=== PATIENT | female | born 1965 | race Caucasian/White ===

== ENCOUNTER 2018-12-12 00:57 | Outpatient (CLI) | payer OTHER, SELFPAY ==
[2018-12-12 17:19] LABS: Mean Corpuscular HGB CONC 32.3 g/dL (32.0-36.0); Mean Corpuscular Hemoglobin 32.8 pg (27.0-31.0); Mean Platelet Volume 7.6 fL (7.4-10.4); Platelet Count 257 thou/uL (130-400); RBC Distribution Width 13.6 % (11.5-14.5); Red Blood Cell (RBC) Count 3.96 mill/uL (4.20-5.40); White Blood Cell (WBC) Count 6.9 thou/uL (4.8-10.8)
[2018-12-12 17:32] LABS: Anion Gap 12 mmol/L (10-20); BUN (Urea Nitrogen) 16 mg/dL (9.8-20.1); Calc. Creatinine Clearance 0 mL/min (70-130); Carbon Dioxide 32 mmol/L (22-29); Chloride 102 mmol/L (98-107); Estimated GFR-MDRD 46; Glucose 111 mg/dL (70-105); Potassium 4.5 mmol/L (3.5-5.1); Sodium 141 mmol/L (136-145)
--- NOTE | 2018-12-13 18:13 | EKG ---
Test Reason : Blood Pressure : / mmHG Vent. Rate : 067 BPM Atrial Rate : 067 BPM P-R Int : 176 ms QRS Dur : 086 ms QT Int : 414 ms P-R-T Axes : 040 033 -32 degrees QTc Int : 437 ms Normal sinus rhythm Nonspecific T wave abnormality Poor anterior R wave progression Low voltage QRS Abnormal ECG No previous ECGs available Confirmed by DR. Dipti BOATENG ([id number]) on 12/13/2018 6:13:20 PM Referred By: WARD Confirmed By:DR. Dipti BOATENG
== END 2018-12-12 00:58 | disposition home or self-care (01) ==
LOC: LABBT 00:57
PROVIDERS: ATTEND Orthopaedic Surgery
DX: Z01.818 Encounter for other preprocedural examination (principal); S86.812A Strain of other muscle(s) and tendon(s) at lower leg level, left leg, initial encounter; S83.412A Sprain of medial collateral ligament of left knee, initial encounter
CPT/HCPCS: 80048; 85027; 93005; 93010

== ENCOUNTER 2018-12-13 07:29 | Day surgery (SDC) | payer OTHER ==
[2018-12-12 16:08] VITALS: BMI 30.8
[2018-12-13] MEDS ORDERED: Midazolam HCl 2 mg/2 ml Vial ONE ×2 (08:38→08:46)
[2018-12-13] MEDS ORDERED: Fentanyl 100 MCG/2 ML VIAL ONE ×2 (08:38→11:16)
[2018-12-13] MEDS ORDERED: Clindamycin/D5W 900 mg/50 ml Premix Bag ONE (08:46)
[2018-12-13] MEDS ORDERED: Bupivacaine HCl 0.5%/Epinephrine 1:200,000/PF 30 ml Vial ONE (09:01)
[2018-12-13] MEDS ORDERED: HYDROcodone/Acetaminophen 5/325 mg Tablet ONE (12:23)
[2018-12-13] MEDS ORDERED: Ondansetron PF 4 MG/2 ML Vial ONE (13:31)
[2018-12-13] MEDS ORDERED: Lidocaine 1% PF 5 ML VIAL ONE (13:31)
[2018-12-13] MEDS ORDERED: PROPOFOL 200 MG/20 ML VIAL ONE (13:31)
--- NOTE | 2018-12-13 17:44 | OP ---
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 PROCEDURE PERFORMED: Arthroscopy of the left knee with lateral retinacular release and shaving of the patella and open medial retinacular tightening and repair. ANESTHESIA: General. DESCRIPTION OF PROCEDURE: The patient was given preoperative IV antibiotics, taken to the operating room, placed in supine position. Satisfactory general anesthesia was performed. The left lower extremity was placed in a leg robin and sterilely prepped and draped in usual fashion. After exsanguination, tourniquet was raised to 300 mmHg. The knee was scoped through the usual inferomedial and inferolateral portals. Upon entering the suprapatellar pouch, the patient had mild synovitis. Partial synovectomy was performed. There was some chondromalacia with fraying of the articular cartilage under the patella and this was smoothed down with a shaver. The rest of the knee was evaluated. Intercondylar notch revealed an intact anterior cruciate ligament. Medial and lateral compartments had normal articular cartilage and both the medial and lateral menisci were completely intact. An ArthroWand was then used to perform a lateral retinacular release. An incision was then made over the medial retinaculum approximately 2 inches in length and the medial retinaculum was exposed up to the quadriceps tendon and down to just medial of the patellar tendon. This was opened and then the medial retinaculum was tightened using #2 Vicryl in interrupted [id number] sutures. Additional #2 Vicryl was used to augment the repair and tightening of the medial retinaculum. The patella rode well in the femoral groove. The wound was then copiously irrigated with antibiotic solution and the wound was then closed using 2-0 Vicryl for the subcutaneous tissue, and the skin was closed with 3-0 Rapide. Portals were closed with 3-0 Rapide. 30 mL of 0.5% Marcaine with epinephrine was then injected in the knee and around the lateral retinacular release and the medial retinacular tightening. Sterile dressing was applied. The tourniquet was released. Leg was taken out of the leg robin. The patient was awakened, extubated, and transferred to recovery room in stable condition. ESTIMATED BLOOD LOSS: None. COMPLICATIONS: None. TOURNIQUET TIME: 45 minutes. DISCHARGE MEDICATION: [place] 10 one every 6 hours as needed for pain, #50. FOLLOWUP: Follow up in my office in one week. The patient may weightbear as tolerated on the left lower extremity, but needs to use her walker to avoid falling. Job ID: [id number]
== END 2018-12-13 14:10 | disposition home or self-care (01) ==
LOC: SDC 07:29
PROVIDERS: ATTEND Orthopaedic Surgery
PROC: 0MNP4ZZ Release Left Knee Bursa and Ligament, Percutaneous Endoscopic Approach (ICD-10-PCS; principal; 2018-12-13)
PROC: 0LQR0ZZ Repair Left Knee Tendon, Open Approach (ICD-10-PCS; principal; 2018-12-13)
DX: S86.812A Strain of other muscle(s) and tendon(s) at lower leg level, left leg, initial encounter (principal); M22.42 Chondromalacia patellae, left knee; M19.90 Unspecified osteoarthritis, unspecified site; Z79.1 Long term (current) use of non-steroidal anti-inflammatories (NSAID); Z79.899 Other long term (current) drug therapy; Z88.0 Allergy status to penicillin; W01.0XXA Fall on same level from slipping, tripping and stumbling without subsequent striking against object, initial encounter; Y99.0 Civilian activity done for income or pay
CPT/HCPCS: J0670; J2001; J2250; J2405; J2704; J3010; J3490

== ENCOUNTER 2019-02-26 18:30 | Inpatient (IN) | payer SELFPAY ==
[~2019-02-26 18:30] MED LIST: ISOVUE-370 76%-LOCM 1 ML ONE
[2019-02-26 19:15] LABS: #Eosinphils 0.3 thou/uL (0.0-0.7); #Lymphocytes 1.9 thou/uL (1.20-3.40); #Monocytes 0.4 thou/uL (0.11-0.59); #Neutrophils 4.6 thou/uL (1.40-6.50); %Basophils 0.6 % (0.0-1.0); %Eosinophils 3.5 % (0.0-10.0); %Lymphocytes 25.7 % (21.0-51.0); %Monocytes 6.1 % (0.0-10.0); %Neutrophils 64.2 % (42.0-75.0); Hemoglobin 11.5 g/dL (12.0-16.0); Mean Corpuscular HGB CONC 33.7 g/dL (32.0-36.0); Mean Corpuscular Hemoglobin 34.5 pg (27.0-31.0); Mean Platelet Volume 7.2 fL (7.4-10.4); Platelet Count 269 thou/uL (130-400); RBC Distribution Width 13.7 % (11.5-14.5); Red Blood Cell (RBC) Count 3.33 mill/uL (4.20-5.40); White Blood Cell (WBC) Count 7.2 thou/uL (4.8-10.8)
--- NOTE | 2019-02-26 19:34 | RAD ---
AP view chest. HISTORY: Chest pain AP view chest obtained. Cardiomegaly noted. No evidence of active intrathoracic disease seen. No evid ence of effusions, pneumonia or pneumothorax seen IMPRESSION: Cardiomegaly.
[2019-02-26 19:41] LABS: ALT (SGPT) 16 U/L (8-55); AST (SGOT) 31 U/L (5-34); Albumin 4.2 g/dL (3.5-5.0); Alkaline Phosphatase 56 U/L (40-150); Anion Gap 14 mmol/L (10-20); BUN (Urea Nitrogen) 17 mg/dL (9.8-20.1); Bilirubin, Total 0.2 mg/dL (0.2-1.2); CK (CPK) 1373 U/L (29-168); Calc. Creatinine Clearance 0 mL/min (70-130); Calcium 9.8 mg/dL (7.8-10.44); Carbon Dioxide 30 mmol/L (22-29); Chloride 97 mmol/L (98-107); Estimated GFR-MDRD 52; Globulin 3.6 g/dL (2.4-3.5); Glucose 93 mg/dL (70-105); Lipase 16 U/L (8-78); Potassium 4.4 mmol/L (3.5-5.1); Protein, Total 7.8 g/dL (6.0-8.3); Sodium 137 mmol/L (136-145)
--- NOTE | 2019-02-26 21:14 | RAD ---
4 VIEWS LEFT KNEE: Date: 02/26/19 COMPARISON: 08/30/08. HISTORY: Left knee pain. FINDINGS: Four views of the left knee show no evidence of acute fracture or dislocation. There is a small knee effusion. Moderate prepatellar soft tissue swelling is seen. Mild tricompartmental degenerative loredo es are seen. IMPRESSION: Mild left knee osteoarthritis without acute osseous abnormality. POS: C
--- NOTE | 2019-02-26 22:19 | CT ---
Contrast-enhanced images abdomen pelvis. HISTORY: Chest pain. Contrast-enhanced CT images of the abdomen pelvis obtained. IV contrast was given. Bibasilar areas of lung atelectasis are present. The patient has a moderate size pericardial effusion . The liver and spleen are unremarkable. Gallbladder unremarkable. The patient has a large amount of stool in the colon. No evidence of free intraperitoneal air seen. No evidence of small bowel obstruction seen. There is a 2.5 x 3.3 x 3.8 cm left periaortic iliac soft tissue mass possibly representing a left alhaji ac lymph node. This lesion is definitely abnormal. Malignancy cannot be excluded. IMPRESSION: Large left iliac lesion concerning for possible malignant lymph node.
[2019-02-26] MEDS ORDERED: Acetaminophen 325 MG TAB ONE (22:35)
[2019-02-26] MEDS ORDERED: HYDROcodone/Acetaminophen 5/325 mg Tablet ONE (22:35)
[2019-02-27 00:02] LABS: Bilirubin Negative (Negative); Blood, Urine Negative (Negative); Clarity CLEAR (Clear); Glucose, Urine (Dipstick) Negative (Negative); Leukocyte Negative (Negative); Nitrite Negative (Negative); Protein, Urine (Dipstick) Negative (Neg-Trace); Specific Gravity, Urine 1.037 (1.002-1.036); Urobilinogen 0.2 mg/dL (0.2-1.0)
[2019-02-27] MEDS ORDERED: Ondansetron PF 4 MG/2 ML Vial IVP PRN (00:06)
[2019-02-27] MEDS ORDERED: Ondansetron ODT 4 MG TAB PO PRN (00:06)
[2019-02-27] MEDS ORDERED: Levothyroxine 150 MCG TAB PO SCH (00:15)
[2019-02-27] MEDS ORDERED: Levothyroxine Sodium 100 MCG TAB PO SCH (00:15)
[2019-02-27] MEDS ORDERED: Furosemide 40 MG/4 ML VIAL SLOW IVP SCH (00:37)
[2019-02-27] MEDS ORDERED: HYDROcodone/Acetaminophen 5/325 mg Tablet PO PRN (01:02)
[2019-02-27] MEDS: HYDROcodone/Acetaminophen 5/325 mg Tablet PO PRN ×2 (01:24→19:48)
--- NOTE | 2019-02-27 01:26 | HP ---
PRIMARY CARE DOCTOR: None reported. CODE STATUS: Full code. TIME OF EVALUATION: 12:00. CHIEF COMPLAINT: Shortness of breath and chest pain. HISTORY OF PRESENT ILLNESS: This is a 53-year-old female patient, morbidly obese, with no significant past medical history, came to the hospital after having shortness of breath that was when she was lying flat associated with chest pain, right in the middle of the chest radiating to the back with no clear triggers, no alleviating factors. The chest pain was reported as oppressive and was 5/10. The shortness of breath started one day ago and the chest pain started a few hours ago. REVIEW OF SYSTEMS: CONSTITUTIONAL: No fever, chills, or generalized weakness. RESPIRATORY: The patient has shortness of breath when laying flat. No cough. CARDIOVASCULAR: The patient has chest pain. No palpitation. GASTROINTESTINAL: No nausea. No vomiting, diarrhea, or abdominal pain. CONSULTING TECHNICAL DIRECTOR: No dizziness, headache, or feeling lightheaded. GENITOURINARY: No burning on urination. EXTREMITIES: Bilateral leg swelling. All other systems were reviewed and negative except for the findings mentioned above. PAST MEDICAL HISTORY: As mentioned in HPI. PAST SURGICAL HISTORY: Left knee surgery. PSYCHIATRIC HISTORY: No previous surgeries. SOCIAL HISTORY: The patient used to smoke. No drugs. No alcohol. FAMILY HISTORY: Reviewed and noncontributory for current presentation. KNOWN ALLERGIES: Penicillin. REPORTED MEDICATIONS: None. PHYSICAL EXAMINATION: VITAL SIGNS: On presentation, blood pressure 124/85 with heart rate 63, respiratory rate was 16, temperature 98.5, pain 5/10, oxygen saturation was 95% on room air. GENERAL APPEARANCE: The patient is alert, oriented, not in acute distress. HEENT: The patient seems to have bilateral eyes swollen. Eyes, normal conjunctivae. Moist oral mucosa. Anicteric. Periorbital swelling. NECK: No JVD. RESPIRATORY: Bilateral air entry. No rales or wheezes. Symmetric expansion. CARDIOVASCULAR: Normal rate, regular rhythm. No murmurs. No gallop. No edema. ABDOMEN: Soft. Normal bowel sounds. MUSCULOSKELETAL: Baseline range of motion and strength. No tenderness. SKIN: Warm, intact. No pallor. No rash. No redness. Peripheral pulses are present. Capillary refill seems to be intact. NEURO: No evidence of any new focal weakness, Cranial nerves seem to be intact. PSYCH: The patient is in good mood. No anxiety. Optimal judgment. DIAGNOSTIC DATA: EKG was reviewed. The patient has ventricular rate 64, MI 158, QRS 84, QT corrected 408. Normal sinus rhythm. Chest x-ray was reviewed. The patient has cardiomegaly. Knee x-ray was reviewed. The patient has mild left knee osteoarthritis without acute osseous abnormalities. Abdomen and pelvis CT was reviewed. The patient has a large left iliac lesion concerning for possible malignancy and lymph nodes. Moderate-sized pericardial effusion. LABORATORY DATA: Labs were reviewed. The patient has a white count of 7.2, hemoglobin 9.5, MCV 103, and platelet count 269. D-dimer less than 0.27. ESR negative. Chemistries: Sodium 137, potassium 4.4, chloride 97, carbon dioxide 30, anion gap 14, BUN 17, creatinine 1.1, GFR 52, glucose 93, calcium 9.8, total bilirubin 0.2. LFTs were negative. CK 1373. TSH 114, free T4 less than 0.4. ASSESSMENT AND PLAN: The patient will be placed in the hospital with the following medical problems: 1. Shortness of breath, unclear etiology. EKG did not show significant infiltrates or pulmonary edema, the patient does have cardiomegaly, we will do an echo since on the CAT scan, the patient has moderate-sized pericardial effusion. We will review echo with Cardiology for any further treatment. 2. Severe hypothyroidism. The patient presented with very elevated TSH in a rate of 114, we will start the patient on levothyroxine, we will monitor repeat TSH and T4 in the next coming days. It seems that the patient was not aware that she has hypothyroidism. 3. Chest pain. The patient has no history of coronary artery disease. We will monitor troponins overnight. We will do the echo. We will monitor on tele. We will treat accordingly. Plan as per Cardiology recommendations. 4. Mildly elevated CK secondary to severe hypothyroidism. We will monitor and we will treat accordingly. 5. Macrocytic anemia with MCV of 103. This is likely secondary to severe hypothyroidism. We will treat underlying condition. 6. Deep venous thrombosis prophylaxis. Job ID: [id number]
[2019-02-27 01:49] VITALS: BMI 33.6
[2019-02-27 01:51] LABS: #Eosinphils 0.3 thou/uL (0.0-0.7); #Lymphocytes 1.7 thou/uL (1.20-3.40); #Monocytes 0.4 thou/uL (0.11-0.59); #Neutrophils 4.4 thou/uL (1.40-6.50); %Basophils 0.5 % (0.0-1.0); %Eosinophils 4.2 % (0.0-10.0); %Lymphocytes 25.5 % (21.0-51.0); %Monocytes 5.8 % (0.0-10.0); Mean Corpuscular HGB CONC 33.6 g/dL (32.0-36.0); Mean Corpuscular Hemoglobin 34.5 pg (27.0-31.0); Mean Platelet Volume 7.5 fL (7.4-10.4); Platelet Count 270 thou/uL (130-400); RBC Distribution Width 13.7 % (11.5-14.5); Red Blood Cell (RBC) Count 3.48 mill/uL (4.20-5.40); White Blood Cell (WBC) Count 6.8 thou/uL (4.8-10.8)
[2019-02-27 02:25] LABS: Anion Gap 14 mmol/L (10-20); BUN (Urea Nitrogen) 17 mg/dL (9.8-20.1); CK (CPK) 1311 U/L (29-168); Calc. Creatinine Clearance 92 mL/min (70-130); Calcium 9.9 mg/dL (7.8-10.44); Carbon Dioxide 28 mmol/L (22-29); Cardiac Risk 7.9 (Less than 4.5); Chloride 98 mmol/L (98-107); Cholesterol 357 mg/dl (< 200 Desired); Estimated GFR-MDRD 53; Glucose 101 mg/dL (70-105); HDL Cholesterol 45 mg/dL (>60 Neg Risk); Potassium 4.8 mmol/L (3.5-5.1); Sodium 135 mmol/L (136-145)
[2019-02-27 02:38] LABS: LDL Cholesterol, Calculated 221 mg/dL; Triglycerides 449 mg/dL (Less than 150)
[2019-02-27 02:53] LABS: Troponin I Less than 0.010 ng/mL (< 0.028)
[2019-02-27] MEDS: Furosemide 40 MG/4 ML VIAL SLOW IVP SCH ×2 (05:27→14:13)
[2019-02-27] MEDS: Enoxaparin Sodium 40 MG/0.4 ML SYRINGE SC SCH (08:15)
--- NOTE | 2019-02-27 14:54 | PDOC.EVN ---
Event Note - Event Note Event Note: Patient seen and examined. Still with some SOB. No current chest pain. Repleting thyroid. ECHO pending. Cardiology consulted. No current hemodynamic compromise. If pericardial effusion significant will need to talk to CT surgery.
[2019-02-28] MEDS: Furosemide 40 MG/4 ML VIAL SLOW IVP SCH ×2 (05:31→16:27)
[2019-02-28] MEDS: Levothyroxine Sodium 100 MCG TAB PO SCH (05:31)
[2019-02-28] MEDS ORDERED: Levothyroxine 150 MCG TAB PO SCH (06:00)
[2019-02-28] MEDS ORDERED: Sodium Chloride 0.9% 10 ML ONE ×2 (08:38→16:23)
--- NOTE | 2019-02-28 08:41 | PDOC.PN ---
- Subjective Encounter Start Date: 02/28/19 Encounter Start Time: 12:00 Subjective: Patient reports fatigue. No more chest pain. No SOB. - Objective Resuscitation Status - Order Detail: 02/27/19 00:06 Resuscitation Status Routine Resuscitation Status: FULL: Full Resuscitation MAR Reviewed: Yes Vital Signs & Weight: Vital Signs (12 hours) Temp Pulse Resp BP Pulse Ox 02/28/19 08:00 97.6 F 63 16 116/67 95 02/28/19 03:23 97.5 F L 93 16 123/70 92 L 02/27/19 23:55 72 120/75 Weight Weight 213 lb 8 oz I&O: 02/27/19 02/28/19 03/01/19 06:59 06:59 06:59 Intake Total 60 960 Output Total 1700 600 Balance -1640 360 Result Diagrams: 02/27/19 01:42 02/27/19 01:42 Phys Exam - Physical Examination Constitutional: NAD fatigued appearing HEENT: moist MMs Respiratory: no wheezing, no rales, no rhonchi Cardiovascular: RRR, no significant murmur Gastrointestinal: soft, positive bowel sounds Neurological: non-focal, moves all 4 limbs Psychiatric: normal affect, A&O x 3 Dx/Plan (1) Severe hypothyroidism Code(s): E03.8 - OTHER SPECIFIED HYPOTHYROIDISM Status: Acute Comment: with SOB, fatigue, and possible cardiac side effects, replacing, if patient has evidence of CAD may need to back off on replacement and go slower (2) Chest pain Code(s): R07.9 - CHEST PAIN, UNSPECIFIED Status: Resolved Comment: Cardiology consulted, troponins negative (3) Pericardial effusion Code(s): I31.3 - PERICARDIAL EFFUSION (NONINFLAMMATORY) Status: Acute Comment: not severe, Cardiology consulted (4) Macrocytic anemia Code(s): D53.9 - NUTRITIONAL ANEMIA, UNSPECIFIED Status: Acute Comment: likely due to hypothyroidism, mild (5) Mixed hyperlipidemia Code(s): E78.2 - MIXED HYPERLIPIDEMIA Status: Acute Comment: due to hypothyroidism - Plan cont current plan of care, out of bed/ambulate Awaiting cardiology recs. * . - Discharge Day Encounter end time: 12:10
[2019-02-28] MEDS: Enoxaparin Sodium 40 MG/0.4 ML SYRINGE SC SCH (09:20)
[2019-02-28] MEDS ORDERED: PROPOFOL 200 MG/20 ML VIAL ONE (11:43)
[2019-02-28] MEDS ORDERED: Lidocaine 1% PF 5 ML VIAL ONE ×2 (11:43→15:08)
[2019-02-28] MEDS ORDERED: Colchicine 0.6 MG TAB PO SCH (12:45)
--- NOTE | 2019-02-28 14:05 | CON ---
DATE OF CONSULTATION: HISTORY: Bree Ignacio is a 53-year-old white female, who is admitted with shortness of breath and chest pain. Over the last day, she has had increased shortness of breath as well as a chest pressure. Chest pressure was worse when she was supine and better if she was sitting up. Discomfort has lasted over 24 hours. She underwent abdominal and pelvis CT, and this revealed a large left iliac lesion worrisome for malignant lymph node. This is 2.5 x 3.3 x 3.8 cm. Also, there was evidence of moderate size pericardial effusion. She has had weight gain and alopecia for at least 10 years. PAST MEDICAL HISTORY: She has no history of hypertension or diabetes. PAST SURGICAL HISTORY: Left knee surgery. MEDICATIONS: None. ALLERGIES: PENICILLIN. PHYSICAL EXAMINATION: VITAL SIGNS: Blood pressure of 113/73, pulse of 60. HEENT: PERRL. She has ptosis present, left greater than right. CHEST: Clear. CARDIAC: S1 and S2 normal without any S3, S4, murmurs, or rubs. ABDOMEN: Obese. Normal bowel sounds. EXTREMITIES: Revealed trace pretibial edema. NEUROLOGIC: Grossly intact. IMAGING STUDIES: EKG reveals normal sinus rhythm with nonspecific T-wave change , poor R-wave progression. During the night, she does have some episodes of bradycardia with heart rates in the 30s with sinus rhythm. LABORATORY DATA: Hemoglobin 12.0, hematocrit 35.7, white count 6800, platelets 270,000. D-dimer less than 0.27. Sodium 135, potassium 4.8, chloride 98, carbon dioxide 28, BUN 17, creatinine 1.07. CK 1311. I do not see an MB fraction. Troponin I is normal x2. Cholesterol of 357, triglycerides 449, HDL 45, LDL 221 , free T4 less than 0.40, TSH 114.8207. IMPRESSION: 1. Pericardial effusion. By my exam, she has a paradox of four. I doubt that she has cardiac tamponade at this time. Her pericardial effusion could certainly be due to a viral etiology, but also maybe related to her profound hypothyroidism. 2. Hypothyroidism. 3. Obesity. 4. Recent left knee surgery. 5. Presumed rhabdomyolysis. 6. Severe hypercholesterolemia probably related to profound hypothyroidism. PLAN: MB will be obtained to better define her elevated CK. The patient will be started on colchicine 0.6 mg b.i.d. Her pericardial effusion will need to be watched closely. Hypothyroidism is also present, and her thyroid need to be slowly replaced. Job ID: [id number] [facility]
[2019-02-28] MEDS ORDERED: PROPOFOL 20 ML ONE (15:08)
[2019-02-28] MEDS: HYDROcodone/Acetaminophen 5/325 mg Tablet PO PRN (19:41)
[2019-02-28] MEDS: Colchicine 0.6 MG TAB PO SCH (19:41)
[2019-03-01] MEDS: Furosemide 40 MG/4 ML VIAL SLOW IVP SCH ×2 (05:08→14:57)
[2019-03-01] MEDS: Levothyroxine Sodium 100 MCG TAB PO SCH (05:08)
[2019-03-01] MEDS: HYDROcodone/Acetaminophen 5/325 mg Tablet PO PRN ×2 (06:13→19:40)
--- NOTE | 2019-03-01 08:15 | OP ---
DATE OF PROCEDURE: 02/28/2019 PROCEDURE PERFORMED: Transesophageal echocardiography. INDICATION: Assess RV apex. DESCRIPTION OF PROCEDURE: The patient was consented for the procedure. I discussed the procedure in full detail with Steve Ignacio. Risks included, but not limited to the following: Damage to teeth, mouth, back of throat, damage to esophagus requiring emergency surgery as well as reaction to medication. All questions were answered. Given the above, the patient agreed to proceed with above procedure. FINDINGS: LV apex is very difficult to assess. I could not truly visualize the apex due to the distance from the probe in the esophagus. There was suggestion of a small apical aneurysm, but further delineation could not be assessed. IMPRESSION: 1. Limited visualization of the RV apex. 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 Job ID: [id number]
[2019-03-01] MEDS ORDERED: Sodium Chloride 0.9% 10 ML ONE ×2 (08:38→14:56)
--- NOTE | 2019-03-01 08:49 | PDOC.PN ---
- Subjective Encounter Start Date: 03/01/19 Encounter Start Time: 11:00 Subjective: Patient fatigued, no other complaints. No chest pain. No SOB. - Objective Resuscitation Status - Order Detail: 02/27/19 00:06 Resuscitation Status Routine Resuscitation Status: FULL: Full Resuscitation MAR Reviewed: Yes Vital Signs & Weight: Vital Signs (12 hours) Temp Pulse Resp BP BP Pulse Ox 03/01/19 07:30 93 L 03/01/19 07:29 97.9 F 64 16 121/71 98 03/01/19 06:11 129/83 94 L 03/01/19 03:26 97.6 F 78 19 117/57 L 94 L Weight Weight 211 lb 12.8 oz I&O: 02/28/19 03/01/19 03/02/19 06:59 06:59 06:59 Intake Total 960 1225 Output Total 600 2600 Balance 360 -1375 Result Diagrams: 02/27/19 01:42 03/03/19 05:41 Phys Exam - Physical Examination Constitutional: NAD HEENT: moist MMs Respiratory: no wheezing, no rales, no rhonchi Cardiovascular: RRR Gastrointestinal: soft, positive bowel sounds Neurological: non-focal Psychiatric: normal affect, A&O x 3 Dx/Plan (1) Severe hypothyroidism Code(s): E03.8 - OTHER SPECIFIED HYPOTHYROIDISM Status: Acute (2) Chest pain Code(s): R07.9 - CHEST PAIN, UNSPECIFIED Status: Resolved Comment: Cardiology consulted, troponins negative (3) Pericardial effusion Code(s): I31.3 - PERICARDIAL EFFUSION (NONINFLAMMATORY) Status: Acute Comment: mild effusion (4) Macrocytic anemia Code(s): D53.9 - NUTRITIONAL ANEMIA, UNSPECIFIED Status: Acute Comment: likely due to hypothyroidism, mild (5) Mixed hyperlipidemia Code(s): E78.2 - MIXED HYPERLIPIDEMIA Status: Acute Comment: due to hypothyroidism - Plan cont current plan of care, out of bed/ambulate home today if ok with cardiology * . - Discharge Day Encounter end time: 11:15
[2019-03-01] MEDS: Colchicine 0.6 MG TAB PO SCH ×2 (09:01→19:40)
[2019-03-01] MEDS: Enoxaparin Sodium 40 MG/0.4 ML SYRINGE SC SCH (09:02)
[2019-03-01 10:57] LABS: CKMB 9.3 ng/mL (0-6.6)
[2019-03-01] MEDS: Acetaminophen 325 MG TAB PO PRN (12:11)
[2019-03-01 12:28] LABS: BUN (Urea Nitrogen) 20 mg/dL (9.8-20.1); Calc. Creatinine Clearance 87 mL/min (70-130); Calcium 9.7 mg/dL (7.8-10.44); Estimated GFR-MDRD 51; Glucose 87 mg/dL (70-105)
[2019-03-01 12:37] LABS: Anion Gap 15 mmol/L (10-20); Carbon Dioxide 35 mmol/L (22-29); Chloride 91 mmol/L (98-107); Potassium 3.9 mmol/L (3.5-5.1); Sodium 137 mmol/L (136-145)
[2019-03-02] MEDS ORDERED: Levothyroxine Sodium 50 MCG TAB PO SCH (06:00)
[2019-03-02 06:41] LABS: Anion Gap 12 mmol/L (10-20); BUN (Urea Nitrogen) 23 mg/dL (9.8-20.1); Calc. Creatinine Clearance 106 mL/min (70-130); Calcium 9.8 mg/dL (7.8-10.44); Carbon Dioxide 35 mmol/L (22-29); Chloride 92 mmol/L (98-107); Estimated GFR-MDRD 64; Glucose 95 mg/dL (70-105); Potassium 4.1 mmol/L (3.5-5.1); Sodium 135 mmol/L (136-145)
--- NOTE | 2019-03-02 08:29 | ULT ---
THYROID ULTRASOUND: CLINICAL HISTORY: Hypothyroidism COMPARISON:None FINDINGS: Right thyroid lobe: Measures 4.4 x 1.5 x 2.4 cm. Left thyroid lobe: Measures 3.3 x 1.3 x 1.6 cm. Isthmus: Measures 2 mm. Nodules: No discrete nodules. There is diffuse heterogeneous echotexture of the thyroid gland. IMPRESSION: Diffuse thyroid gland heterogeneity without discrete nodule. Correlate clinically.
--- NOTE | 2019-03-02 09:36 | ULT ---
ULTRASOUND PELVIC ULTRASOUND TRANSVAGINAL DOPPLER DUPLEX: DATE: 03/02/2019. HISTORY: A 53-year-old female with mass abutting the left distal abdominal aortic bifurcation and left common iliac artery found on CT of 02/26/2019. TECHNIQUE: Transabdominal transducer used to evaluate intrapelvic contents using the urinary bladder as an acous tic window. Endovaginal transducer used to visualize intrapelvic contents in greater detail. Color fl ow Doppler and Pulsed Doppler spectral waveform analysis of ovaries. FINDINGS: Because of body habitus, there is very limited visualization of intrapelvic contents. Intrapelvic co ntents are not visible at all on the transvaginal images, and the mass in question would be too dista nt from the transvaginal transducer to reach. The urinary bladder appears unremarkable. The uterus is in the right side of the pelvic inlet. There are 2 small structures abutting the uterus which pro bably represent nonenlarged, normal-sized ovaries. The right ovary has flow demonstrated by Doppler. The left ovary is poorly visualized, and because of its location, Doppler signal is not attained. No large ovarian cyst or solid mass is visualized. The uterus measures approximately 7 x 4 x 5.5 cm. The endometrial stripe is not visible. The mass mentioned on the CT report is not visible on the u ltrasound. No free fluid. IMPRESSION: 1. The mass abutting the left side of the distal abdominal aortic bifurcation and abutting the later al edge of the left common iliac artery demonstrated on the CT, is not visible on this ultrasound. 2. No malignant neoplasm identified on this ultrasound. VERONICA Montemayor POS: STEPHIE
[2019-03-02] MEDS: Colchicine 0.6 MG TAB PO SCH ×2 (09:41→20:50)
[2019-03-02] MEDS: Enoxaparin Sodium 40 MG/0.4 ML SYRINGE SC SCH (11:43)
--- NOTE | 2019-03-02 12:14 | PDOC.PN ---
- Subjective Encounter Start Date: 03/02/19 Encounter Start Time: 09:00 Subjective: no c/o chest pain or sob -: is ambulating in room -: edema of her eyelids and lips are receding per patient - Objective Resuscitation Status - Order Detail: 02/27/19 00:06 Resuscitation Status Routine Resuscitation Status: FULL: Full Resuscitation MAR Reviewed: Yes Vital Signs & Weight: Vital Signs (12 hours) Temp Pulse Resp BP Pulse Ox 03/02/19 07:35 94 L 03/02/19 07:08 98.0 F 66 16 125/75 93 L 03/02/19 03:50 97.4 F L 64 14 119/78 92 L Weight Weight 209 lb 11.2 oz I&O: 03/01/19 03/02/19 03/03/19 06:59 06:59 06:59 Intake Total 1225 480 Output Total 2600 600 Balance -1375 -120 Result Diagrams: 02/27/19 01:42 03/02/19 06:05 Phys Exam - Physical Examination HEENT: PERRLA, moist MMs Neck: no JVD, supple Respiratory: no wheezing, no rales Cardiovascular: RRR, no significant murmur Gastrointestinal: soft, non-tender, positive bowel sounds Musculoskeletal: no edema, pulses present Neurological: non-focal, moves all 4 limbs Psychiatric: normal affect, A&O x 3 Dx/Plan (1) Severe hypothyroidism Code(s): E03.8 - OTHER SPECIFIED HYPOTHYROIDISM Status: Acute (2) Macrocytic anemia Code(s): D53.9 - NUTRITIONAL ANEMIA, UNSPECIFIED Status: Acute Comment: likely due to hypothyroidism, mild (3) Mixed hyperlipidemia Code(s): E78.2 - MIXED HYPERLIPIDEMIA Status: Acute Comment: due to hypothyroidism (4) Pericardial effusion Code(s): I31.3 - PERICARDIAL EFFUSION (NONINFLAMMATORY) Status: Acute Comment: mild effusion (5) left iliac lymph node enlargement Status: Acute - Plan increase synthroid to 100mcg daily, heart rates are dipping into 40's at ti -: -mes, is asymptomatic. -: usg pelvis shows no obvious pathalogy -: diffuse enlargement of thyroid on usg -: has large left iliac lymph node suspicious for met, Consult * . continue colchicine add lipitor. To ambulate in hallway Has long standing alopecia atleast 10 yrs thyroid labs in am dulcolax suppository/fleets for constipation. Needs outpt colonoscopy/await biospy of lymph node if it needs to be done urgently. I have given complete updates to patient and explained the need for further labs. Review of Systems - Medications/Allergies Allergies/Adverse Reactions: Allergies Allergy/AdvReac Type Severity Reaction Status Date / Time Penicillins Allergy Verified 02/27/19 01:20 Medications: Current Medications Acetaminophen (Tylenol) 650 mg PO Q4H PRN PRN Reason: Headache/Fever/Mild Pain (1-3) Last Admin: 03/01/19 12:11 Dose: 650 mg Hydrocodone Bitart/Acetaminophen ([place] 5/325) 1 tab PO Q4H PRN PRN Reason: Moderate Pain (4-6) Last Admin: 03/01/19 19:40 Dose: 1 tab Hydrocodone Bitart/Acetaminophen ([place] 5/325) 2 tab PO Q4H PRN PRN Reason: Severe Pain (7-10) Colchicine (Colchicine) 0.6 mg PO BID [facility] Last Admin: 03/02/19 09:41 Dose: 0.6 mg Enoxaparin Sodium (Lovenox) 40 mg SC 0900 [facility] Last Admin: 03/02/19 11:43 Dose: Not Given Levothyroxine Sodium (Synthroid) 100 mcg PO 0600 KM Ondansetron HCl (Zofran Odt) 4 mg PO Q6H PRN PRN Reason: Nausea/Vomiting Ondansetron HCl (Zofran) 4 mg IVP Q6H PRN PRN Reason: Nausea/Vomiting Sodium Chloride (Flush - Normal Saline) 10 ml IVF Q12HR KM Last Admin: 03/02/19 09:41 Dose: 10 ml Sodium Chloride (Flush - Normal Saline) 10 ml IVF PRN PRN PRN Reason: Saline Flush
[2019-03-02] MEDS: Acetaminophen 325 MG TAB PO PRN (12:18)
[2019-03-02] MEDS ORDERED: Magnesium Citrate 300 ML BOT PO SCH (13:30)
[2019-03-02] MEDS ORDERED: Bisacodyl 10 MG SUPP PR PRN (16:51)
[2019-03-02] MEDS: Polyethylene Glycol 3350 17 GM Packet PO SCH (20:50)
[2019-03-02] MEDS: Citrucel 500 MG TAB PO SCH (20:50)
[2019-03-02] MEDS: HYDROcodone/Acetaminophen 5/325 mg Tablet PO PRN (20:53)
--- NOTE | 2019-03-02 21:07 | HP ---
HISTORY OF PRESENT ILLNESS: Bree Ignacio is a 53-year-old female living at the care home last 2 weeks. She reports that she was working, but had a knee problem, lost her job. Her 34-year-old son has recently . The patient reports to the hospital 02/27/2019, admitted by the hospitalist service from the emergency room. The patient complains of dyspnea and chest pain. She is not having any fever or chills. She has had a recent echocardiogram that revealed an effusion and Dr. De Jesus had seen her. No stress test has been performed. She denies ever having had a colonoscopy. Dr. De Jesus has seen her this hospitalization and is following her. The patient for some reason had a CAT scan on 02/26/2019. Reason for the CAT scan was listed as chest pain. The patient has significant constipation. She has 2.5 x 3.3 x 3.8 cm left periaortic iliac soft tissue mass possibly representing left iliac node. When asked if she has lost weight, she states that she lost 2 to 3 pounds during this hospitalization. 5 feet 7 inches, 209 pounds, 32 BMI. She has never had a colonoscopy. She denies any history of night sweats or fever. ALLERGIES: PENICILLIN. SOCIAL HISTORY: Tobacco, one pack per day. Alcohol, none. MEDICATIONS: Outpatient, none listed. Inpatient; hydrocodone, levothyroxine, Zofran. PAST SURGICAL HISTORY: On 12/13/2018, Dr. Delaney performed arthroscopy left knee with lateral retinacular release shaving the patella. On 02/28/2019, Dr. Reyes performed a CELY, seeing a very small apical aneurysm. PAST MEDICAL HISTORY: Noncontributory except as noted above. PHYSICAL EXAMINATION: VITAL SIGNS: 209 pounds, 32 BMI. HEAD, EARS, EYES, NOSE AND THROAT: Unremarkable. LUNGS: Clear to auscultation. CARDIAC: Regular rate and rhythm without murmur or gallop. ABDOMEN: Soft, obese, protuberant. AXILLA, GROINS, AND NECK: Without lymphadenopathy. EXTREMITIES: Unremarkable. LABORATORY DATA: Basic metabolic profile is normal. White count 6, hemoglobin 12. ASSESSMENT AND PLAN: Large left iliac probable node. This is probably a node. I have discussed with Radiology. It is not accessible by CT-guided biopsy. MRI would probably not help. A PET scan may add to information, but she is uninsured and this cannot be done as an inpatient. The patient's laparoscopic biopsy would require general anesthetic and she is admitted with chest pain. I am not sure why the CAT scan was obtained, but nonetheless it reveals this density. Consideration for colonic cleansing and repeating the CAT scan in 6 weeks could be given. A laparoscopic biopsy would be difficult in this morbidly obese patient and again as noted above, would require general anesthetic and she would require cardiac evaluation prior to general anesthetic. Repeating her CAT scan in 6 weeks may reveal other nodes that may be more accessible. Exam currently does not reveal any palpable peripheral lymphadenopathy. Consideration for colonoscopy could be given. She has never had this, but unlikely that a colon lesion would metastasize here. At this point, I will await her cardiac workup and would suggest colon cleansing and repeating her CAT scan in 6 weeks and/or outpatient PET scan. Job ID: [id number]
[2019-03-03] MEDS: HYDROcodone/Acetaminophen 5/325 mg Tablet PO PRN (03:50)
[2019-03-03] MEDS ORDERED: Levothyroxine Sodium 100 MCG TAB PO SCH (06:00)
[2019-03-03 06:39] LABS: Anion Gap 12 mmol/L (10-20); BUN (Urea Nitrogen) 21 mg/dL (9.8-20.1); Calc. Creatinine Clearance 94 mL/min (70-130); Calcium 9.4 mg/dL (7.8-10.44); Carbon Dioxide 34 mmol/L (22-29); Chloride 92 mmol/L (98-107); Estimated GFR-MDRD 56; Glucose 96 mg/dL (70-105); Sodium 134 mmol/L (136-145)
[2019-03-03] MEDS: Polyethylene Glycol 3350 17 GM Packet PO SCH (08:53)
[2019-03-03] MEDS: Colchicine 0.6 MG TAB PO SCH (08:53)
[2019-03-03] MEDS: Citrucel 500 MG TAB PO SCH (08:53)
[2019-03-03] MEDS: Enoxaparin Sodium 40 MG/0.4 ML SYRINGE SC SCH (08:53)
[2019-03-03 10:12] LABS: Free T4 (Free Thyroxine) Less than 0.40 ng/dL (0.70-1.48)
[2019-03-03 12:01] VITALS: BP 130/83; TEMP 98.5
--- NOTE | 2019-03-03 13:26 | PDOC.PN ---
- Subjective Encounter Start Date: 03/03/19 Encounter Start Time: 09:45 Subjective: felt dizzy this am, but now she is alright -: no chest pain or sob or palp -: is ambulating in room - Objective Resuscitation Status - Order Detail: 02/27/19 00:06 Resuscitation Status Routine Resuscitation Status: FULL: Full Resuscitation MAR Reviewed: Yes Vital Signs & Weight: Vital Signs (12 hours) Temp Pulse Resp BP BP Pulse Ox 03/03/19 11:57 98.5 F 60 17 130/83 93 L 03/03/19 08:40 98.3 F 69 18 117/77 95 03/03/19 04:00 97.8 F 86 20 124/68 92 L Weight Weight 207 lb 4.8 oz I&O: 03/02/19 03/03/19 03/04/19 06:59 06:59 06:59 Intake Total 480 1200 Output Total 600 400 Balance -120 800 Result Diagrams: 02/27/19 01:42 03/03/19 05:41 Phys Exam - Physical Examination HEENT: PERRLA, moist MMs Neck: no JVD, supple Respiratory: no wheezing, no rales Cardiovascular: RRR, no significant murmur Gastrointestinal: soft, non-tender, positive bowel sounds Musculoskeletal: pulses present, edema present Neurological: non-focal, moves all 4 limbs Psychiatric: normal affect, A&O x 3 Dx/Plan (1) Severe hypothyroidism Code(s): E03.8 - OTHER SPECIFIED HYPOTHYROIDISM Status: Acute (2) Macrocytic anemia Code(s): D53.9 - NUTRITIONAL ANEMIA, UNSPECIFIED Status: Acute Comment: likely due to hypothyroidism, mild (3) Mixed hyperlipidemia Code(s): E78.2 - MIXED HYPERLIPIDEMIA Status: Acute Comment: due to hypothyroidism (4) Pericardial effusion Code(s): I31.3 - PERICARDIAL EFFUSION (NONINFLAMMATORY) Status: Acute Comment: mild effusion (5) left iliac lymph node enlargement Status: Acute - Plan hemostable -: is on 100mcg synthroid, pulse around 60-80/min -: may dc home -: she needs CT abd in 6 weeks, colonoscopy in 4 weeks, repeat thyroid labs in -: -6 wks, PCP f/u in 1 week. * .
--- NOTE | 2019-03-06 08:15 | DIS ---
DATE OF ADMISSION: 02/26/2019 DATE OF DISCHARGE: 03/03/2019 DISCHARGE DISPOSITION: Home. PRIMARY DISCHARGE DIAGNOSES: Severe hypothyroidism diagnosed in this hospitalization, chronic macrocytic anemia, dyslipidemia, mild pericardial effusion, and left iliac lymph node enlargement for a repeat CAT scan in six weeks. PROCEDURES DONE DURING HOSPITALIZATION: echo with 2D Doppler showed EF of 55% to 60%, mild to moderate concentric LVH, small well-circumscribed area at the apex of the RV suggesting aneurysm, a small (trivial) pericardial effusion. Transesophageal echo on 02/28/[address] 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 Left knee four view x-ray done showed mild left knee osteoarthritis without acute osseous abnormality. Chest x-ray done showed cardiomegaly, but no acute infiltrate. CT of the abdomen and pelvis with contrast done showed large left iliac lesion concerning for possible malignant lymph node. This measured 2.5 x 3.3 x 3.8 cm in the left periaortic iliac area likely soft tissue mass versus left iliac lymph node. Visualized liver and spleen were unremarkable. Gallbladder was unremarkable. No free intraperitoneal air was seen on this CAT scan. No small-bowel obstruction was seen. A complete pelvic ultrasound including transvaginal done showed a mass abutting the left side of the distal abdominal aortic bifurcation and abutting the lateral edge of the left common iliac artery demonstrated on CT, is not visible on the ultrasound. No malignant neoplasm was identified in the pelvis. The patient's urinary bladder was unremarkable. Uterus and ovaries were unremarkable. Left ovary was poorly visualized. Right ovary at normal Doppler flow. No ovarian cyst or solid mass was seen. Uterus measured 7 x 4 x 5.5 cm. Endometrial stripe was not visible. No free fluid was seen in the pelvis. Thyroid ultrasound done showed diffuse thyroid gland heterogeneity without discrete nodule. H and H 12 and 35, platelet count 270. MCV was 102 with 64% neutrophils. Sedimentation rate was 55. D-dimer less than 0.27. Total cholesterol 357, triglycerides 449, LDL 221, HDL 45, free T3 was 1.52 on the day of discharge, free T4 less than 0.4. BUN 21, creatinine 1.0 on the day of discharge. TSH was 114 on the with free T4 less than 0.4. Troponin x3 was negative. CRP was less than 0.50. BNP 35. CK levels were 1373. Liver enzymes were within normal limits. DISCHARGE MEDICATIONS: 1. Lipitor 20 mg p.o. daily. 2. Colchicine 0.6 mg p.o. twice daily for 15 days. 3. Synthroid 100 mcg p.o. daily. 4. MiraLax 17 g daily. ALLERGIES: ALLERGIC TO PENICILLIN. INPATIENT CONSULT: Dr. De Jesus for Cardiology, Dr. Crocker for General Surgery. DISCHARGE PLAN: The patient to follow up with primary care physician in 1 week. She also needs outpatient referral for colonoscopy and upper endoscopy in 4 to 6 weeks and will need thyroid function test to be done in six weeks to titrate her thyroid medications. She also needs a CT of the abdomen and pelvis to see for any changes in her left iliac lymph node. All of these needs to be done via her primary care physician. BRIEF COURSE DURING HOSPITALIZATION: The patient initially came to ER with complaints of shortness of breath and chest pain. She also had chronic alopecia from last 4 to 5 years. Initial CAT scan done showed enlarged left iliac lymph node and also was suspicious for moderate pericardial effusion. Transthoracic echo done showed trivial pericardial effusion, but there was suspicion for possible apical aneurysm. She has had transesophageal echo done, which was not conclusive and the patient most likely was suspected to have mild apical aneurysm. She was evaluated by Dr. De Jesus for Cardiology. The patient had severe hypothyroidism with TSH of 114. She was placed on Synthroid and her medications have been uptitrated to 100 mcg p.o. daily. Her heart rates were dipping down to 40s, although she was asymptomatic, likely due to severe hypothyroidism. She had macrocytosis along with lower extremity edema and constipation with mood disorder, all likely attributed to hypothyroidism. She has had consultation with Dr. Crocker for the left iliac mass, which was suspicious for malignancy. This was in a location where Intervention Radiology not General Surgery could intervene at present. The plan is to obtain a repeat CT of the abdomen and pelvis in six weeks to see for any changes in the mass or any mass to be biopsied. The patient has not had screening colonoscopy and she is 53 years old. The patient will require outpatient colonoscopy with upper endoscopy in the next 4 weeks. Pelvic ultrasound done did not reveal any pelvic mass or etiology attributable for the left iliac mass. Prior to discharge, she is eating and ambulating. She is currently living at a correction, but apparently has resources to buy medications per Case Management. She has been strongly advised to see a physician at [facility] or [facility] and all the information toward the same has been given and she has been counseled as well. She was counseled regarding medication compliance. She is clearly aware of symptoms of hypothyroidism. She is hemodynamically stable and will be shortly discharged home. Please see a [id number] documentation for the day of discharge on [facility]. Job ID: [id number]
[2019-03-06 14:27] LABS: ANA Symphony (Qualitative) POSITIVE (Negative); ANA Symphony (Quantitative) 4.3 Ratio (< 0.7 Negative); CENP IgG Antibody Less than 0.4 EliAU/mL (<7 Negative); Jo-1 IgG Antibody Less than 0.3 EliAU/mL (<7 Negative); RNP70 IgG Antibody Less than 0.3 EliAU/mL (<7 Negative); SSB/La IgG Antibody Less than 0.3 EliAU/mL (<7 Negative); Scleroderma-70 IgG Antibody 0.6 EliAU/mL (<7 Negative); Smith D IgG Antibody 1.2 EliAU/mL (<7 Negative); dsDNA IgG Antibody 1.5 IU/mL (<10 Negative)
== END 2019-03-03 16:48 | disposition home or self-care (01) | DRG 316 ==
LOC: ERS 18:30 → 2NO 22:58
PROVIDERS: ADMIT Hospitalist; ATTEND Hospitalist
PROC: B246ZZ4 Ultrasonography of Right and Left Heart, Transesophageal (ICD-10-PCS; principal; 2019-02-26)
DX: I31.3 Pericardial effusion (noninflammatory) (principal); E78.2 Mixed hyperlipidemia; E03.9 Hypothyroidism, unspecified; D53.9 Nutritional anemia, unspecified; E66.9 Obesity, unspecified; Z68.32 Body mass index [BMI] 32.0-32.9, adult; R59.9 Enlarged lymph nodes, unspecified; K59.00 Constipation, unspecified; L65.9 Nonscarring hair loss, unspecified; R07.9 Chest pain, unspecified
CPT/HCPCS: 36415; 71045; 74177; 76536; 76856; 80048; 80053; 80061; 81003; 82550; 82553; 83690; 83880; 84439; 84443; 84481; 84484; 85025; 85379; 85652; 86038; 86140; 86225; 86235; 93005; 93306; 93312; J1650; J1940; J2001; J2405; J2704; Q9966

== ENCOUNTER 2019-03-13 19:23 | Emergency (ER) | payer SELFPAY ==
[2019-03-13 20:16] LABS: #Eosinphils 0.1 thou/uL (0.0-0.7); #Lymphocytes 1.7 thou/uL (1.20-3.40); #Monocytes 0.8 thou/uL (0.11-0.59); %Basophils 0.2 % (0.0-1.0); %Lymphocytes 21.9 % (21.0-51.0); %Monocytes 10.2 % (0.0-10.0); %Neutrophils 65.7 % (42.0-75.0); Hemoglobin 11.4 g/dL (12.0-16.0); Mean Corpuscular HGB CONC 34.4 g/dL (32.0-36.0); Mean Corpuscular Hemoglobin 35.7 pg (27.0-31.0); Mean Platelet Volume 7.3 fL (7.4-10.4); Platelet Count 240 thou/uL (130-400); RBC Distribution Width 14.1 % (11.5-14.5); White Blood Cell (WBC) Count 7.6 thou/uL (4.8-10.8)
[2019-03-13] MEDS ORDERED: Furosemide 40 MG/4 ML VIAL ONE (20:22)
--- NOTE | 2019-03-13 20:23 | RAD ---
EXAM: Single view of the chest HISTORY: Shortness of breath and dyspnea COMPARISON: 02/26/2019 FINDINGS: Single view of the chest shows an enlarged but stable cardiomediastinal silhouette. There i s no evidence of consolidation, mass, or pleural effusion. The bones are unremarkable. IMPRESSION: No evidence of acute cardiopulmonary disease
[2019-03-13 20:27] LABS: ALT (SGPT) 41 U/L (8-55); AST (SGOT) 38 U/L (5-34); Albumin 4.1 g/dL (3.5-5.0); Alkaline Phosphatase 68 U/L (40-150); Anion Gap 11 mmol/L (10-20); BUN (Urea Nitrogen) 17 mg/dL (9.8-20.1); Bilirubin, Total 0.3 mg/dL (0.2-1.2); CK (CPK) 256 U/L (29-168); Calc. Creatinine Clearance 0 mL/min (70-130); Calcium 9.3 mg/dL (7.8-10.44); Carbon Dioxide 29 mmol/L (22-29); Chloride 101 mmol/L (98-107); Estimated GFR-MDRD 71; Globulin 3.5 g/dL (2.4-3.5); Glucose 109 mg/dL (70-105); Lipase 14 U/L (8-78); Potassium 4.2 mmol/L (3.5-5.1); Protein, Total 7.6 g/dL (6.0-8.3); Sodium 137 mmol/L (136-145)
[2019-03-13 21:04] LABS: Free T4 (Free Thyroxine) 0.77 ng/dL (0.70-1.48); Thyroid Stimulating Hormone 56.3776 uIU/mL (0.35-4.94)
--- NOTE | 2019-03-13 21:26 | CT ---
EXAM: CTA of the chest HISTORY: Shortness of breath COMPARISON: None TECHNIQUE: Multiple contiguous axial images were obtained a CTA of the chest with contrast per pulmon dorothy embolism protocol. 3-D oblique MIP reformats and direct coronal reformats were performed. FINDINGS: HEART: Normal in size without focal cardiac abnormality. PULMONARY ARTERIES: Normal in caliber without filling defects to suggest pulmonary emboli. MEDIASTINUM: No hilar or mediastinal lymphadenopathy. LUNGS: No focal infiltrates or masses. Atelectasis is seen in the bilateral lower lobes, lingula, and right middle lobe. PLEURAL SPACE: No pleural effusion or pneumothorax. CHEST WALL SOFT TISSUES: Unremarkable VISUALIZED OSSEOUS STRUCTURES: Unremarkable VISUALIZED SUBDIAPHRAGMATIC STRUCTURES: Unremarkable IMPRESSION: 1. No evidence of pulmonary thromboembolism 2. Atelectasis
--- NOTE | 2019-03-18 14:53 | EKG ---
Test Reason : Blood Pressure : / mmHG Vent. Rate : 073 BPM Atrial Rate : 073 BPM P-R Int : 150 ms QRS Dur : 082 ms QT Int : 428 ms P-R-T Axes : 041 004 003 degrees QTc Int : 471 ms Normal sinus rhythm with sinus arrhythmia Normal ECG Confirmed by JAVI CALABRESE, TIFFANI ([id number]), primer expeditor and drier SCOTT THOMAS ([id number]) on 03/18/2019 2:52:50 PM Referred By: Confirmed By:TIFFANI CALDWELL MD
== END 2019-03-13 21:54 | disposition home or self-care (01) ==
LOC: ERS 19:23
DX: E03.9 Hypothyroidism, unspecified (principal); F17.210 Nicotine dependence, cigarettes, uncomplicated; Z79.899 Other long term (current) drug therapy
CPT/HCPCS: 71045; 71275; 80053; 82550; 83690; 83880; 84439; 84443; 84484; 85025; 85379; 93005; 96374; J1940; Q9966

== ENCOUNTER 2019-04-21 09:38 | Outpatient (CLI) | payer OTHER, SELFPAY ==
[2019-04-21 12:54] LABS: Hemoglobin 11.7 g/dL (12.0-16.0); Mean Corpuscular HGB CONC 30.7 g/dL (32.0-36.0); Mean Corpuscular Hemoglobin 29.7 pg (27.0-31.0); Mean Corpuscular Volume 96.9 fL (78.0-98.0); Mean Platelet Volume 6.9 fL (7.4-10.4); Platelet Count 366 thou/uL (130-400); RBC Distribution Width 15.8 % (11.5-14.5); Red Blood Cell (RBC) Count 3.92 mill/uL (4.20-5.40); White Blood Cell (WBC) Count 7.1 thou/uL (4.8-10.8)
[2019-04-21 13:13] LABS: Anion Gap 11 mmol/L (10-20); BUN (Urea Nitrogen) 11 mg/dL (9.8-20.1); Calc. Creatinine Clearance 0 mL/min (70-130); Calcium 10.1 mg/dL (7.8-10.44); Carbon Dioxide 32 mmol/L (22-29); Chloride 101 mmol/L (98-107); Estimated GFR-MDRD 87; Glucose 87 mg/dL (70-105); Potassium 4.4 mmol/L (3.5-5.1); Sodium 140 mmol/L (136-145)
--- NOTE | 2019-04-21 17:24 | EKG ---
Test Reason : Blood Pressure : / mmHG Vent. Rate : 081 BPM Atrial Rate : 081 BPM P-R Int : 160 ms QRS Dur : 080 ms QT Int : 384 ms P-R-T Axes : 037 017 017 degrees QTc Int : 446 ms Normal sinus rhythm Nonspecific ST-T changes When compared with ECG of 13-MAR-2019 19:54, Nonspecific T wave abnormality no longer evident in Anterior leads Confirmed by DR. Dipti BOATENG ([id number]) on 04/21/2019 5:24:27 PM Referred By: WARD Confirmed By:DR. Dipti BOATENG
== END 2019-04-21 09:39 | disposition home or self-care (01) ==
LOC: LABBT 09:38
PROVIDERS: ATTEND Orthopaedic Surgery
DX: Z01.818 Encounter for other preprocedural examination (principal); S83.412D Sprain of medial collateral ligament of left knee, subsequent encounter
CPT/HCPCS: 80048; 85027; 93005; 93010

== ENCOUNTER 2019-05-04 08:35 | Day surgery (SDC) | payer OTHER ==
[2019-04-21 12:04] VITALS: BMI 30.8
[2019-05-04] MEDS ORDERED: Clindamycin/D5W 900 mg/50 ml Premix Bag ONE (08:51)
[2019-05-04] MEDS ORDERED: Bupivacaine HCl 0.5%/Epinephrine 1:200,000/PF 30 ml Vial ONE (09:47)
[2019-05-04] MEDS ORDERED: Fentanyl 100 MCG/2 ML VIAL ONE ×3 (10:39→12:22)
--- NOTE | 2019-05-04 12:30 | OP ---
DATE OF PROCEDURE: 05/04/2019 PREOPERATIVE DIAGNOSIS: Lateral dislocation of the patella of the left knee. POSTOPERATIVE DIAGNOSIS: Lateral dislocation of the patella of the left knee. PROCEDURE PERFORMED: Arthroscopy, left knee, with lateral retinacular release and open medial retinacular repair and tightening and shaving of the undersurface of the patella. ANESTHESIA: General. DESCRIPTION OF PROCEDURE: The patient was given preoperative IV antibiotics, taken to operating room, placed in supine position. Satisfactory general anesthesia was performed. The left lower extremity was placed in a leg robin and sterilely prepped and draped in usual fashion. After exsanguination, tourniquet was raised to 250 mmHg. The knee was scoped in the usual anteromedial and anterolateral portals. The patella was noted to be dislocated laterally, and there was significant chondromalacia and chondral flaps under the patella. Shaver was used to smooth this down. There was significant scar tissue in the lateral retinaculum, which was excised and a lateral retinacular release was performed using surface ArthroWand and scissors. The medial and lateral compartments had some arthritis in the medial compartment, mild arthritis in the lateral compartment. The medial and lateral menisci were intact. Anterior cruciate ligament was intact. A longitudinal incision was made in the medial retinacular area approximately 2.5 inches in length and the medial retinacular tissue was incised and then repaired and tightened with [id number] sutures using #2 FiberWire. The knee was then placed through a range of motion. Then, the patella rode well in the femoral trochlea. The wound in the knee joint was copiously irrigated during the procedure. The subcutaneous tissue was closed with 0 Vicryl. Skin was closed with 3-0 Rapide. A 30 mL of 0.5% Marcaine with epinephrine was then injected in and around the knee and the incisions. Sterile dressing was applied. The tourniquet was released. Leg was taken out of the leg robin. The patient was awakened, extubated, and transferred to recovery room in stable condition. ESTIMATED BLOOD LOSS: Minimal. COMPLICATIONS: None. TOURNIQUET TIME: 47 minutes. DISCHARGE MEDICATIONS: Tylenol No. 4 one every 4 to 6 hours as needed for pain #40 with one refill. The patient may weight bear as tolerated on the left lower extremity, but should use either a walker or crutches. FOLLOWUP: Follow up in my office next week. Job ID: [id number]
[2019-05-04] MEDS ORDERED: Ketorolac Tromethamine 30 MG/ML VIAL ONE (12:38)
[2019-05-04] MEDS ORDERED: Dexamethasone 4 mg/ml Vial ONE (12:42)
== END 2019-05-04 16:10 | disposition home or self-care (01) ==
LOC: SDC 08:35
PROVIDERS: ATTEND Orthopaedic Surgery
PROC: 0SQD0ZZ Repair Left Knee Joint, Open Approach (ICD-10-PCS; principal; 2019-05-04)
PROC: 0MNP4ZZ Release Left Knee Bursa and Ligament, Percutaneous Endoscopic Approach (ICD-10-PCS; principal; 2019-05-04)
DX: S83.015A Lateral dislocation of left patella, initial encounter (principal); M17.12 Unilateral primary osteoarthritis, left knee; M19.90 Unspecified osteoarthritis, unspecified site; F17.210 Nicotine dependence, cigarettes, uncomplicated; Z79.899 Other long term (current) drug therapy; Z88.0 Allergy status to penicillin; Z88.8 Allergy status to other drugs, medicaments and biological substances; Z98.890 Other specified postprocedural states; W19.XXXA Unspecified fall, initial encounter
CPT/HCPCS: J0670; J1100; J1885; J3010; J3490

== ENCOUNTER 2024-03-02 12:04 | Inpatient (IN) | payer SELFPAY ==
[2024-03-02] MEDS ORDERED: Ondansetron PF 4 MG/2 ML Vial ONE (13:54)
[2024-03-02] MEDS ORDERED: Morphine 4 MG/ML VIAL ONE (13:54)
[2024-03-02 14:11] LABS: #Basophils 0.05 10x3/uL (0.0-0.2); %Basophils 0.4 % (0.0-1.0); %Eosinophils 3.9 % (0.0-10.0); %Lymphocytes 16.2 % (21.0-51.0); %Monocytes 4.7 % (0.0-10.0); %Neutrophils 74.5 % (42.0-75.0); Hematocrit 42.7 % (36.0-47.0); Hemoglobin 13.6 g/dL (12.0-16.0); Mean Corpuscular HGB CONC 31.9 g/dL (32.0-36.0); Mean Corpuscular Hemoglobin 29.1 pg (27.0-31.0); Mean Corpuscular Volume 91.2 fL (78.0-98.0); Mean Platelet Volume 9.8 fL (7.4-10.4); Platelet Count 342 10x3/uL (130-400); RBC Distribution Width 13.1 % (11.5-14.5); Red Blood Cell (RBC) Count 4.68 mill/uL (4.20-5.40)
[2024-03-02 14:15] LABS: Bacteria/HPF None Seen HPF (None Seen); Bilirubin Negative (Negative); Blood, Urine Negative (Negative); CAUTI Indications for Culture Pelvic or flank pain; Clarity Clear (Clear); Glucose, Urine (Dipstick) Normal (Negative); Ketone, Urine Negative (Negative); Leukocyte 25 Leu/uL (Negative); Nitrite Negative (Negative); Protein, Urine (Dipstick) 10 mg/dL (Neg-Trace); RBC/HPF 0-3 HPF (0-3); Specific Gravity, Urine 1.024 (1.002-1.036); Squamous Epithelial 0-3 HPF (0-3); Urobilinogen Normal mg/dL (Less than 2); WBC/HPF 0-3 HPF (0-3)
[2024-03-02 14:22] LABS: Urine Culture Reflex No No
[2024-03-02 14:31] LABS: CRP,High Sensitivity (Inhouse) 6.63 mg/dL (< or = 0.5)
[2024-03-02 14:32] LABS: ALT (SGPT) 18 U/L (8-55); AST (SGOT) 15 U/L (5-34); Albumin 2.9 g/dL (3.5-5.0); Alkaline Phosphatase 78 U/L (40-110); Anion Gap 14 mmol/L (10-20); BUN (Urea Nitrogen) 12 mg/dL (9.8-20.1); Bilirubin, Total 0.2 mg/dL (0.2-1.2); Calc. Creatinine Clearance 0 mL/min (70-130); Calcium 9.8 mg/dL (7.8-10.44); Carbon Dioxide 25 mmol/L (22-29); Chloride 105 mmol/L (98-107); Estimated GFR 89; Globulin 4.8 g/dL (2.4-3.5); Glucose 117 mg/dL (70-105); Potassium 3.9 mmol/L (3.5-5.1); Protein, Total 7.7 g/dL (6.0-8.3); Sodium 140 mmol/L (136-145)
[2024-03-02] MEDS ORDERED: Ondansetron PF 4 MG/2 ML Vial IVP PRN (17:09)
[2024-03-02] MEDS ORDERED: HYDROcodone/Acetaminophen 5/325 mg Tablet PO PRN (17:24)
[2024-03-02] MEDS: Acetaminophen 325 MG TAB PO PRN (18:07)
[2024-03-02 18:11] VITALS: BMI 23.6
[2024-03-02] MEDS: Famotidine 20 MG TAB PO SCH (21:17)
[2024-03-02] MEDS: Atorvastatin Calcium 20 MG TAB PO SCH (21:18)
[2024-03-02] MEDS: Ciprofloxacin Lactate/D5W 400 MG in Premix 1 BAG IVPB SCH (21:18)
[2024-03-02] MEDS: metroNIDAZOLE 500 MG in Premix 1 BAG IVPB SCH (22:25)
[2024-03-03 04:53] LABS: #Basophils 0.04 10x3/uL (0.0-0.2); %Basophils 0.3 % (0.0-1.0); %Eosinophils 5.2 % (0.0-10.0); %Lymphocytes 16.9 % (21.0-51.0); %Neutrophils 70.2 % (42.0-75.0); Hematocrit 36.2 % (36.0-47.0); Hemoglobin 11.5 g/dL (12.0-16.0); Mean Corpuscular HGB CONC 31.8 g/dL (32.0-36.0); Mean Corpuscular Hemoglobin 29.6 pg (27.0-31.0); Mean Corpuscular Volume 93.1 fL (78.0-98.0); Mean Platelet Volume 9.9 fL (7.4-10.4); Platelet Count 280 10x3/uL (130-400); RBC Distribution Width 13.1 % (11.5-14.5); Red Blood Cell (RBC) Count 3.89 mill/uL (4.20-5.40)
[2024-03-03 04:59] LABS: INR-International Normal Ratio 1.1; Prothrombin Time 14.4 sec (12.0-14.7)
[2024-03-03 05:07] LABS: Anion Gap 12 mmol/L (10-20); BUN (Urea Nitrogen) 12 mg/dL (9.8-20.1); Calc. Creatinine Clearance 89 mL/min (70-130); Calcium 8.8 mg/dL (7.8-10.44); Carbon Dioxide 22 mmol/L (22-29); Chloride 110 mmol/L (98-107); Estimated GFR 93; Glucose 95 mg/dL (70-105); Potassium 4.2 mmol/L (3.5-5.1); Sodium 140 mmol/L (136-145)
[2024-03-03] MEDS: Levothyroxine 175 MCG TAB PO SCH (05:41)
[2024-03-03 08:43] VITALS: BP 110/73; TEMP 98.5
[2024-03-03] MEDS: Ibuprofen 200 MG TAB PO SCH (10:43)
[2024-03-03] MEDS ORDERED: Sodium Bicarbonate 2.5 MEQ/5 ML SDV ONE (12:48)
[2024-03-03] MEDS ORDERED: Lidocaine 1% PF 5 ML VIAL ONE (12:48)
[2024-03-03] MEDS ORDERED: fentaNYL 50 mcg/mL 1 mL Vial ONE (12:48)
== END 2024-03-03 17:44 | disposition home or self-care (01) | DRG 395 ==
LOC: ERS 12:04 → OBSVTOIN 18:01 → MSONC 18:01
PROVIDERS: ADMIT Internal Medicine; ATTEND Internal Medicine
PROC: 0WBH3ZX Excision of Retroperitoneum, Percutaneous Approach, Diagnostic (ICD-10-PCS; principal; 2024-03-03)
DX: K66.8 Other specified disorders of peritoneum (principal); E03.9 Hypothyroidism, unspecified; Z71.6 Tobacco abuse counseling; E78.5 Hyperlipidemia, unspecified; Z88.0 Allergy status to penicillin; Z88.8 Allergy status to other drugs, medicaments and biological substances; Z79.899 Other long term (current) drug therapy; Z98.51 Tubal ligation status; Z98.890 Other specified postprocedural states; F17.210 Nicotine dependence, cigarettes, uncomplicated
CPT/HCPCS: 36415; 38505; 76700; 76705; 77012; 80048; 80053; 81001; 83605; 85025; 85610; 86141; 88184; 88305; 88333; 88334; 88341; 88342; 96374; 96375; J0744; J2270; J2405; J3010